=== PATIENT | male | born 1985 | race Asian ===

== ENCOUNTER → 2018-11-19 | Outpatient (CLI) | payer OTHER ==
[2018-11-19 17:35] LABS: ALBUMIN 4.6 GM/DL (3.2-5.2); ALT/SGPT 39 U/L (12-78); BILIRUBIN,TOTAL 0.8 MG/DL (0.2-1.0); BLOOD UREA NITROGEN 8 MG/DL (7-18); CALCIUM LEVEL 9.3 MG/DL (8.5-10.1); CARBON DIOXIDE LEVEL 29 MEQ/L (21-32); CHLORIDE LEVEL 105 MEQ/L (98-107); CREATININE FOR GFR 0.88 MG/DL (0.70-1.30); GLOMERULAR FILTRATION RATE > 60.0 (>60); GLUCOSE, FASTING 91 MG/DL (70-100); POTASSIUM SERUM 4.5 MEQ/L (3.5-5.1); RHEUMATOID FACTOR QUANT < 10.0 IU/ML (<15.0); SODIUM LEVEL 139 MEQ/L (136-145); TOTAL PROTEIN 8.2 GM/DL (6.4-8.2)
[2018-11-19 17:41] LABS: BASO # 0.1 10^3/uL (0.0-0.2); BASO % 1.1 % (0.0-1.0); EOS % 0.7 % (0.0-3.0); HEMATOCRIT 48.6 % (42.0-52.0); HEMOGLOBIN 16.2 g/dl (13.5-17.5); LYMPH # 1.6 10^3/uL (1.5-4.5); LYMPH % 25.8 % (24.0-44.0); MEAN CORPUSCULAR HEMOGLOBIN 30.1 pg (27.0-33.0); MEAN CORPUSCULAR HGB CONC 33.3 g/dl (32.0-36.5); MEAN CORPUSCULAR VOLUME 90.2 fl (80.0-96.0); MONO # 0.3 10^3/uL (0.0-0.8); MONO % 4.4 % (0.0-5.0); NEUTROPHILS # 4.1 10^3/uL (1.8-7.7); NEUTROPHILS % 67.7 % (36.0-66.0); PLATELET COUNT, AUTOMATED 338 10^3/uL (150-450); RED BLOOD COUNT 5.39 10^6/uL (4.30-6.10); WHITE BLOOD COUNT 6.1 10^3/uL (4.0-10.0)
[2018-11-19 20:14] LABS: ERYTHROCYTE SEDIMENTATION RATE 3 mm/hr (0-15)
--- NOTE | 2018-11-20 02:42 | REP ---
Clinical: Back pain. Technique: AP and bilateral oblique views of the sacroiliac joints. Findings: Sacroiliac joints are symmetric and normal. Osseous structures are intact. Surrounding soft tissues unremarkable. Impression: Normal sacroiliac joint series Electronically Signed by Carlos Enrique Moreno MD 11/20/2018 02:34 A
--- NOTE | 2018-11-20 02:46 | REP ---
Clinical: Back pain. Technique: AP, lateral, coned-down views of the lumbosacral spine. Findings: Alignment and lordosis maintained. No acute fracture / compression injury or subluxation. Very minimal endplate sclerosis and disc space narrowing at L5-S1 cannot be excluded. Otherwise normal examination. Impression: Very subtle degenerative change at L5-S1 cannot be excluded. Otherwise normal examination. Electronically Signed by Carlos Enrique Moreno MD 11/20/2018 02:38 A
--- NOTE | 2018-11-20 02:47 | REP ---
Clinical: thoracic back pain. Technique: AP, lateral, and swimmers views. Findings: Alignment and kyphosis is maintained. Vertebral bodies intact. No acute fracture / compression injury or subluxation. No degenerative changes. Paravertebral soft tissues are normal. Impression: Normal thoracic spine series. Electronically Signed by Carlos Enrique Moreno MD 11/20/2018 02:39 A
--- NOTE | 2018-11-20 03:16 | REP ---
Clinical: Neck pain . Technique: AP, lateral, swimmers, and open-mouth views. Findings: Alignment and lordosis is maintained. There is no evidence for acute fracture / compression injury or subluxation. No significant degenerative changes are appreciated. Open mouth view demonstrates normal C1-C2 articulation and odontoid process. Impression: Normal cervical spine series. Electronically Signed by Carlos Enrique Moreno MD 11/20/2018 03:08 A
[2018-11-22 00:09] LABS: CYCLIC CITRULLINATED PEPTIDE 9 units (0-19)
[2018-11-26 00:06] LABS: HLA-B27 Positive (.)
== END ==
LOC: M SMT 10:46
PROVIDERS: ATTEND Internal Medicine Rheumatology
DX: M54.9 Dorsalgia, unspecified (principal); Z15.89 Genetic susceptibility to other disease
CPT/HCPCS: 36415; 72040; 72072; 72100; 72202; 80053; 81374; 85025; 85652; 86140; 86200; 86431; G0463

== ENCOUNTER → 2018-12-24 | Outpatient (CLI) | payer OTHER ==
--- NOTE | 2018-12-24 14:03 | REP ---
MRI PELVIS WITHOUT CONTRAST: TECHNIQUE: Multiple sequences obtained in the axial, coronal, and saggital planes without the use of intravenous contrast. Sacrum demonstrates normal marrow signal. There is no evidence of sacroiliitis. No occult fracture is seen. Surrounding soft tissues are unremarkable with no abnormal signal. Visualized intrapelvic structures are unremarkable. IMPRESSION: No MR evidence of sacroiliitis. Electronically Signed by Jaswinder Terry MD 12/25/2018 10:25 A
== END ==
LOC: M RAD 09:54
PROVIDERS: ATTEND Internal Medicine Rheumatology
DX: Z15.89 Genetic susceptibility to other disease (principal)